=== PATIENT | male | born 1990 | race Caucasian/White ===

== ENCOUNTER 2017-01-10 20:27 | Emergency (ER) | payer SELFPAY ==
[2017-01-10 20:39] VITALS: TEMP 97.9
[2017-01-10] MEDS ORDERED: NS 1,000 ML IV ONE (20:42)
--- NOTE | 2017-01-10 20:45 | EDPHY ---
H & P Stated Complaint: ETOH FALL OFF PARK BENCH, POSS + LOC PER WITNESS Time Seen by Provider: 01/10/17 20:42 HPI/ROS: CHIEF COMPLAINT: Rolled off of bench HISTORY OF PRESENT ILLNESS: 26 year old male arrives via ambulance, suspected alcohol intoxication, not a trauma activation after witnessed laying on bench, had seizure-like activity and rolled off the bench. Placed in cervical precautions. Transported to ER. He denies complaints of pain or discomfort. Denies loss of consciousness. Denies neck pain or peripheral paresthesia, weakness, no PRIMARY CARE PROVIDER: REVIEW OF SYSTEMS: A ten point review of systems was performed and is negative with the exception of the items mentioned in the HPI PAST MEDICAL/SURGICAL HISTORY: Homeless. Alcoholism. SOCIAL HISTORY: Positive for alcohol PHYSICAL EXAM 1) GENERAL: poorly kept, foul smelling. 2) HEAD: Normocephalic, atraumatic 3) HEENT: Pupils equal, round, reactive to light bilaterally. Negative Horners. Nasopharynx, oropharynx, clear. No deformity or angulation of nose. No septal hematoma. No rhinorrhea. No oral trauma. Ears bilaterally with normal tympanic membranes. No hemotympanum. No fluid or blood in the external auditory canal. No raccoon eyes. No Monsalve sign. 4) NECK: Cervical collar is on.Cervical collar is removed while holding inline traction and patient is unable to completely differentiate between true midline pain versus just lateral of midline pain.Cervical collar is replaced at that point Due to concerns over alcohol use 5) LUNGS: Clear to auscultation bilaterally, no wheezes, no rhonchi, no retractions. No obvious signs of trauma. No chest wall pain. No flaring, no grunting. Moving symmetrically. No crepitus. 6) HEART: Regular rate and rhythm, 7) ABDOMEN: No guarding, no rebound, no focal tenderness, no peritoneal signs, no signs of trauma, no ecchymosis 8) MUSCULOSKELETAL: Moving all extremities, no focal areas of tenderness, no obvious trauma. 9) BACK: No midline vertebral tenderness, no fluctuance, no step-off, no obvious trauma, no visual or palpable abnormality. 10) SKIN: [ No laceration. No abrasion DIFFERENTIAL DIAGNOSIS: Not necessarily in any particular order, my differential diagnosis includes, but is not limited to, concussion, skull fracture, intraparenchymal contusion, subarachnoid, subdural and epidural hematoma. The patient understands that this diagnosis is provisional and can never be 100% accurate. - Personal History Current Tetanus/Diphtheria Vaccine: Yes Current Tetanus Diphtheria and Acellular Pertussis (TDAP): Yes Tetanus Vaccine Date: 2009 - Medical/Surgical History Hx Asthma: No Hx Chronic Respiratory Disease: No Hx Diabetes: No Hx Cardiac Disease: No Hx Renal Disease: No Hx Cirrhosis: No Hx Alcoholism: No Hx HIV/AIDS: No Hx Splenectomy or Spleen Trauma: No Other PMH: ETOH USE - Social History Smoking Status: Heavy smoker Constitutional: Initial Vital Signs Temperature (C) 36.6 C 01/10/17 20:30 Heart Rate 100 01/10/17 20:30 Respiratory Rate 20 01/10/17 20:30 Blood Pressure 117/98 H 01/10/17 20:30 O2 Sat (%) 100 01/10/17 20:30 O2 Delivery Mode Room Air Allergies/Adverse Reactions: Sulfa (Sulfonamide Antibiotics) Allergy (Intermediate, Verified 01/10/17 20:38) Hives Home Medications: Medication Instructions Recorded NK [No Known Home Meds] 01/10/17 Medical Decision Making - Diagnostics Imaging Results: Imaging Impressions Cervical Spine CT 01/10/17 20:44 Impression: No acute posttraumatic abnormality identified. If symptoms persist and clinical suspicion warrants, consider MRI. Findings discussed with Miguelangel Law 01/10/2017 at 21:16. Head CT 01/10/17 20:44 Impression: No acute intracranial findings. Findings discussed with Miguelangel Law 01/10/2017 at 21:16. Images reviewed by myself ED Course/Re-evaluation: 9:45 p.m.: Patient has self-extricated from a cervical collar refuses to put it back on. Reviewed his imaging results with him. At this time he is awake alert oriented person place time events, a clear speech pattern, stable steady gait without assistance. [facility]. - Data Points Laboratory Results: 01/10/17 20:15 Ethyl Alcohol 510 mg/dL H* mg/dL (0-10) Medications Given: Discontinued Medications Chlordiazepoxide (Librium 25 Mg Prepack#6) 1 btl TAKEHOME EDNOW ONE Stop: 01/10/17 21:43 Last Admin: 01/10/17 21:46 Dose: 1 btl Sodium Chloride (Ns) 1,000 mls @ 0 mls/hr IV ONCE ONE PRN Reason: Wide Open Stop: 01/10/17 20:43 Last Admin: 01/10/17 20:50 Dose: 1,000 mls Departure - Departure Disposition: Home, Routine, Self-Care Clinical Impression: Alcohol intoxication Qualifiers: Complication of substance-induced condition: uncomplicated Qualified Code(s): F10.120 - Alcohol abuse with intoxication, uncomplicated Condition: Good Instructions: Chlordiazepoxide (By mouth), Alcohol Intoxication (ED) Referrals: [facility] [Outside] - As per Instructions
[2017-01-10 21:25] LABS: ETHANOL SERUM 510 mg/dL (0-10)
[2017-01-10] MEDS ORDERED: CHLORDIAZEPOXIDE 25MG PREPK#6 BTL TAKEHOME ONE (21:42)
[2017-01-10 21:51] VITALS: RESP 18
[2017-01-10 22:24] VITALS: BP 118/76; PULSE 94; O2SAT 96
== END 2017-01-10 22:10 | disposition home or self-care (01) ==
LOC: EDUNIT#
DX: F10.120 Alcohol abuse with intoxication, uncomplicated (principal); F17.200 Nicotine dependence, unspecified, uncomplicated
CPT/HCPCS: G0480

== ENCOUNTER 2018-07-27 17:37 | Emergency (ER) | payer OTHER ==
[2018-07-27] MEDS ORDERED: ACETAMINOPHEN 325 MG TAB PO ONE (17:49)
[2018-07-27] MEDS ORDERED: NS 1,000 ML IV ONE (18:21)
[2018-07-27] MEDS ORDERED: ONDANSETRON 4 MG/2 ML VIAL IVP ONE (18:21)
--- NOTE | 2018-07-27 18:25 | EDPHY ---
H & P Stated Complaint: CHILLS, BODY ACHES Time Seen by Provider: 07/27/18 18:21 HPI/ROS: CHIEF COMPLAINT: Myalgias, fever HISTORY OF PRESENT ILLNESS: 27-year-old previously healthy male presents with myalgias and fever. Onset of moderate myalgias at 1:00 a.m., followed by subjective fever, chills, diarrhea and nausea. Diarrhea is watery, nonbloody. No URI symptoms, headache, cough or abdominal pain. No flu vaccination this year. REVIEW OF SYSTEMS: complete 10 point ROS reviewed and is negative except for the noted elements in the HPI Source: Patient - Personal History Current Tetanus/Diphtheria Vaccine: Yes Tetanus Vaccine Date: 2009 - Medical/Surgical History Hx Asthma: No Hx Chronic Respiratory Disease: No Hx Diabetes: No Hx Cardiac Disease: No Hx Renal Disease: No Hx Cirrhosis: No Hx Alcoholism: No Hx HIV/AIDS: No Hx Splenectomy or Spleen Trauma: No Other PMH: ETOH USE - Social History Smoking Status: Heavy smoker Alcohol Use: Sober Additional Social History: In intermediate - Physical Exam Exam: General Appearance: Alert, pleasant Eyes: Pupils equal and round, no conjunctival pallor or injection ENT, Mouth: Mucous membranes moist, no pharyngeal erythema Neck: Normal inspection Respiratory: Lungs are clear to auscultation Cardiovascular: Regular rate and rhythm Gastrointestinal: Abdomen is soft, mild periumbilical tenderness Neurological: A&O, nonfocal, normal gait Skin: Warm and dry Extremities: Normal inspection Psychiatric: Mood and affect normal Constitutional: Initial Vital Signs Temperature (C) 37.6 C 07/27/18 17:44 Heart Rate 97 07/27/18 17:44 Respiratory Rate 16 07/27/18 17:44 Blood Pressure 116/99 H 07/27/18 17:44 O2 Sat (%) 99 07/27/18 17:44 O2 Delivery Mode Room Air Allergies/Adverse Reactions: Sulfa (Sulfonamide Antibiotics) Allergy (Intermediate, Verified 01/10/17 20:38) Hives Home Medications: Medication Instructions Recorded Lexapro 07/27/18 Ondansetron Odt [Zofran Odt 4 mg 4 mg PO Q4 PRN #6 tab 07/27/18 (*)] traZODone 07/27/18 Medical Decision Making ED Course/Re-evaluation: This patient presents with fever, myalgias and nausea, consistent with viral syndrome. IV normal saline 1 L and Zofran 4 mg IV given. Influenza swab is negative, discussed with the patient. Tolerating oral fluids well after IV fluids. Abdomen remained soft and nontender on discharge. Instructions given. Differential Diagnosis: Differential diagnosis includes but is not limited to pneumonia, otitis media, peritonsillar abscess, retropharyngeal abscess, meningitis. - Data Points Medications Given: Discontinued Medications Acetaminophen (Tylenol) 650 mg PO EDNOW ONE Stop: 07/27/18 17:50 Last Admin: 07/27/18 17:55 Dose: 650 mg Sodium Chloride (Ns) 1,000 mls @ 0 mls/hr IV EDNOW ONE; Wide Open PRN Reason: Protocol Stop: 07/27/18 18:22 Last Admin: 07/27/18 18:41 Dose: 1,000 mls Ondansetron HCl (Zofran) 4 mg IVP EDNOW ONE Stop: 07/27/18 18:22 Last Admin: 07/27/18 18:41 Dose: 4 mg Departure - Departure Disposition: Law Enforcement/Court/Residential Clinical Impression: Viral syndrome Condition: Good Instructions: Viral Syndrome (ED) Additional Instructions: 1. Clear liquids for 24 hours. 2. Advance diet as tolerated. I suggest the BRAT diet to start: bananas, rice, applesauce and toast. 3. Return for worsening symptoms, persistent vomiting, abdominal pain, any concerns. 4. Take Zofran 4 mg ODT every 6 hr as needed for nausea and vomiting. 5. Tylenol 650 mg every 4 hr as needed for fever. Referrals: Madeline Diego MD [place] [place] - As per Instructions Prescriptions: Ondansetron Odt [Zofran Odt 4 mg (*)] 4 mg PO Q4 PRN #6 tab PRN Reason: Nausea
[2018-07-27 20:24] VITALS: BP 104/51
== END 2018-07-27 20:24 ==
LOC: EDUNIT#
DX: B34.9 Viral infection, unspecified (principal); M79.10 Myalgia, unspecified site; E86.9 Volume depletion, unspecified; F17.200 Nicotine dependence, unspecified, uncomplicated; F10.99 Alcohol use, unspecified with unspecified alcohol-induced disorder; Z88.2 Allergy status to sulfonamides
CPT/HCPCS: 96374; J2405